=== PATIENT | female | born 1975 ===

== ENCOUNTER 2025-02-01 14:56 | Emergency (ER) | payer OTHER ==
[~2025-02-01] VITALS: Ht 142.2 cm; Wt 57.0 kg
[2025-02-01 16:06] VITALS: BP 154/70; PULSE 82; RESP 17; TEMP 97.8; O2SAT 99
[2025-02-01] MEDS: PERMETHRIN 5% 60 GM CREAM TP ONE (17:35)
== END 2025-02-01 17:57 ==
LOC: EMS 15:02
DX: B35.9 Dermatophytosis, unspecified (principal); I10 Essential (primary) hypertension
CPT/HCPCS: 99283